=== PATIENT | female | born 1960 | race Caucasian/White ===

== ENCOUNTER 2022-12-12 17:08 | Emergency (ER) | payer SELFPAY ==
[~2022-12-12] VITALS: Ht 165.1 cm; Wt 80.0 kg
[~2022-12-12 17:08] MED LIST: AMOX125S12
[2022-12-12] MEDS ORDERED: IBUP-2029 MT (21:34)
[2022-12-12 21:42] VITALS: BP 137/86
== END 2022-12-12 21:45 | disposition home or self-care (01) ==
LOC: ER 17:08
DX: S62.306A Unspecified fracture of fifth metacarpal bone, right hand, initial encounter for closed fracture (principal); E11.9 Type 2 diabetes mellitus without complications; W18.30XA Fall on same level, unspecified, initial encounter; Y93.89 Activity, other specified; Y92.89 Other specified places as the place of occurrence of the external cause; Y99.8 Other external cause status
CPT/HCPCS: 29125; 73110; 73130; 73560; 99284